=== PATIENT | male | born 1945 | race Caucasian/White ===

== ENCOUNTER 2017-11-20 16:22 | Emergency (ER) | payer BC ==
[~2017-11-20] VITALS: Ht 182.9 cm; Wt 97.0 kg
[2017-11-20 16:31] VITALS: TEMP 36.6; Ht 182.9 cm; Wt 97.0 kg
[2017-11-20] MEDS ORDERED: SODIUM CHLORIDE 0.9% 1000ML 1,000 ML IV STA (16:36)
[2017-11-20 16:48] LABS: BASO % 0.3 %; BASO ABS # 0.03 K/uL (0-0.2); EOS % 0.5 %; EOS ABS # 0.05 K/uL (0-0.5); HEMATOCRIT 39.7 % (42-52); HEMOGLOBIN 14.4 g/dL (14.0-18.0); IG# 0.03 K/uL (0.00-0.02); LYMPH % 19.5 %; MEAN CELL VOLUME 89.4 fL (80-100); MEAN CORPUSCULAR HEMOGLOBIN 32.4 pg (25-34); MEAN CORPUSCULAR HGB CONC 36.3 g/dl (32-36); MEAN PLATELET VOLUME 9.6 fL (7.4-10.4); MONO % 7.6 %; MONO ABS # 0.74 K/uL (0.11-0.59); NEUT % 71.8 %; PLATELET COUNT 213 K/uL (130-400); RED CELL DISTRIBUTION WIDTH CV 12.8 % (11.5-14.5); RED CELL DISTRIBUTION WIDTH SD 41.5 fL (36.4-46.3); WHITE BLOOD COUNT 9.75 K/uL (4.8-10.8)
--- NOTE | 2017-11-20 16:50 | EMERGENCY ROOM VISIT NOTE ---
History Report prepared by Latonia: Gerson Sim Under the Supervision of: Dr. Kassidy Burk M.D. First contact with patient: 16:23 Chief Complaint: SYNCOPE Stated Complaint: SYNCOPE Nursing Triage Summary: Patient was here in [employer] [facility] working on a house, mowing lawn and other chores. Patient came into the house and said he was dizzy and had a syncopal episode for about one minute. Patient denies pain now but c/o nausea. patient recieved 700 ml nss bolus enroute. History of Present Illness The patient is a 72 year old male who presents to the Emergency Room with complaints of resolved syncope occurring prior to arrival. Nursing staff report that the patient was working outside today for 6 hours and had an episode of syncope lasting for about one minute. The patient's family states that the patient had been mowing the lawn and painting, drinking water and lemonade throughout the day. They report that the patient sat on a ladder, his eyes rolled back, and he was unresponsive for a short time. They deny the patient hitting his head. They state that the patient now feels nauseous, hot, and sweaty. They state that the patient has a history of hypertension. They note that his PCP is at [facility]. The patient denies chest pain, shortness of breath, blood in his stool, or recent illness. He states that he vomited and currently feels nauseous and lightheaded. He states that today he ate cereal, yogurt, and milk. He notes that he is not on any medications that would affect his heart rate. He states that he has a history of bradycardia since his teen years. Source of History: patient Onset: prior to arrival Position: other (global) Quality: other (syncope) Timing: resolved Associated Symptoms: + nausea, No chest pain, No SOB, No melena, No hematochezia Note: lightheaded. denies recent illness Review of Systems See HPI for pertinent positives & negatives. A total of 10 systems reviewed and were otherwise negative. Past Medical & Surgical Medical Problems: (1) Bradycardia Family History Patient reports no known family medical history. Social History Smoking Status: Never Smoker Drug Use: none Marital Status: Housing Status: lives with family Occupation Status: retired Current/Historical Medications Scheduled Aspirin (Aspirin Ec), 81 MG PO DAILY Fish Oil ([place]-3), 1,200 MG PO QID Losartan Potassium (Cozaar), 100 MG PO DAILY Multivitamin (Multivitamin), 1 TAB PO DAILY Simvastatin (Zocor), 40 MG PO QPM Allergies Coded Allergies: No Known Allergies (Unverified , 11/20/17) Physical Exam Vital Signs Date Time Temp Pulse Resp B/P (MAP) Pulse Ox O2 Delivery O2 Flow Rate FiO2 11/20/17 21:01 141/75 11/20/17 21:00 58 20 11/20/17 20:48 64 11/20/17 20:45 67 21 11/20/17 20:31 125/71 11/20/17 20:30 55 15 11/20/17 20:15 55 17 11/20/17 20:01 151/63 11/20/17 20:00 56 16 11/20/17 19:45 55 16 11/20/17 19:31 133/71 11/20/17 19:30 56 20 11/20/17 18:38 60 18 124/63 97 Room Air 11/20/17 17:04 49 16 120/66 98 Room Air 48 120/60 51 138/58 11/20/17 16:54 50 11/20/17 16:31 36.6 52 18 124/63 99 Room Air Physical Exam Vital signs reviewed. General: Appears pale and mildly diaphoretic. The patient is holding and emesis bag. HEENT: No scleral icterus, PERRLA, neck supple. Atraumatic. Cardiovascular: Bradycardic with occasional pause. Pulmonary: Clear to auscultation bilaterally, normal work of breathing. Abdomen: Soft, nontender, nondistended, positive bowel sounds. Musculoskeletal: Atraumatic, no peripheral edema. Neurologic: Patient awake alert and oriented x 3, full strength in all 4 extremities. Cranial nerves 2 through 12 grossly intact. Skin: Warm, dry, no rash Medical Decision & Procedures Laboratory Results 11/20/17 16:30 Red Blood Count 4.44, Mean Corpuscular Volume 89.4, Mean Corpuscular Hemoglobin 32.4, Mean Corpuscular Hemoglobin Concent 36.3, Mean Platelet Volume 9.6, Neutrophils (%) (Auto) 71.8, Lymphocytes (%) (Auto) 19.5, Monocytes (%) (Auto) 7.6, Eosinophils (%) (Auto) 0.5, Basophils (%) (Auto) 0.3, Neutrophils # (Auto) 7.00, Lymphocytes # (Auto) 1.90, Monocytes # (Auto) 0.74, Eosinophils # (Auto) 0.05, Basophils # (Auto) 0.03 11/20/17 16:30 Test 11/20/17 16:30 11/20/17 17:55 11/20/17 20:28 White Blood Count 9.75 K/uL (4.8-10.8) Red Blood Count 4.44 M/uL (4.7-6.1) Hemoglobin 14.4 g/dL (14.0-18.0) Hematocrit 39.7 % (42-52) Mean Corpuscular Volume 89.4 fL (80-100) Mean Corpuscular Hemoglobin 32.4 pg (25-34) Mean Corpuscular Hemoglobin Concent 36.3 g/dl (32-36) Platelet Count 213 K/uL (130-400) Mean Platelet Volume 9.6 fL (7.4-10.4) Neutrophils (%) (Auto) 71.8 % Lymphocytes (%) (Auto) 19.5 % Monocytes (%) (Auto) 7.6 % Eosinophils (%) (Auto) 0.5 % Basophils (%) (Auto) 0.3 % Neutrophils # (Auto) 7.00 K/uL (1.4-6.5) Lymphocytes # (Auto) 1.90 K/uL (1.2-3.4) Monocytes # (Auto) 0.74 K/uL (0.11-0.59) Eosinophils # (Auto) 0.05 K/uL (0-0.5) Basophils # (Auto) 0.03 K/uL (0-0.2) RDW Standard Deviation 41.5 fL (36.4-46.3) RDW Coefficient of Variation 12.8 % (11.5-14.5) Immature Granulocyte % (Auto) 0.3 % Immature Granulocyte # (Auto) 0.03 K/uL (0.00-0.02) Anion Gap 8.0 mmol/L (3-11) Est Creatinine Clear Calc Drug Dose 42.2 ml/min Estimated GFR () 39.7 Estimated GFR (Non- 34.2 BUN/Creatinine Ratio 12.9 (10-20) Calcium Level 8.9 mg/dl (8.5-10.1) Total Bilirubin 0.8 mg/dl (0.2-1) Direct Bilirubin 0.3 mg/dl (0-0.2) Aspartate Amino Transf (AST/SGOT) 25 U/L (15-37) Alanine Aminotransferase (ALT/SGPT) 34 U/L (12-78) Alkaline Phosphatase 72 U/L (45-117) Total Creatine Kinase 206 U/L (39-308) Total Protein 7.8 gm/dl (6.4-8.2) Albumin 3.8 gm/dl (3.4-5.0) Thyroid Stimulating Hormone (TSH) 3.810 uIu/ml (0.300-4.500) Urine Color DK YELLOW Urine Appearance CLEAR (CLEAR) Urine pH 6.0 (4.5-7.5) Urine Specific [place] 1.021 (1.000-1.030) Urine Protein TRACE (NEG) Urine Glucose (UA) NEG (NEG) Urine Ketones 1+ (NEG) Urine Occult Blood NEG (NEG) Urine Nitrite NEG (NEG) Urine Bilirubin NEG (NEG) Urine Urobilinogen NEG (NEG) Urine Leukocyte Esterase SMALL (NEG) Urine WBC (Auto) 1-5 /hpf (0-5) Urine RBC (Auto) 0-4 /hpf (0-4) Urine Hyaline Casts (Auto) 1-5 /lpf (0-5) Urine Epithelial Cells (Auto) 20-30 /lpf (0-5) Urine Bacteria (Auto) NEG (NEG) Urine Pathogenic Casts /lpf (0) Troponin I 0.032 ng/ml (0-0.045) Laboratory results per my review. Medications Administered Medications (Trade) Dose Ordered Sig/Mandy Route Start Time Stop Time Status Last Admin Dose Admin Sodium Chloride 1,000 ml @ 200 mls/hr Q5H STAT IV 11/20/17 16:36 11/20/17 21:35 DC 11/20/17 17:04 200 MLS/HR Ondansetron HCl (Zofran Inj) 4 mg STK-MED ONCE .ROUTE 11/20/17 17:01 11/20/17 17:02 DC 11/20/17 17:04 4 MG ECG Per My Interpretation Indication: syncope Rate (beats per minute): 53 Rhythm: sinus bradycardia Findings: 1st degree AV block, PAC, other (QTC 414) ED Course 1632: Past medical records reviewed. The patient was evaluated in room C11A. A complete history and physical examination was performed. 1636: Ordered Sodium Chloride 1000 ml @ 200 mls/hr IV 2210: Upon reevaluation, the patient appeared to have improvement of his symptoms. I discussed findings with him. He verbalized agreement of the treatment plan. He was discharged home. Medical Decision Differential diagnosis: Etiologies such as vasovagal event, infection, hypoglycemia, electrolyte abnormalities, cardiac sources, intracerebral event, toxicologic, neurologic, as well as others were entertained. This patient was evaluated and appeared to be in no significant distress. IV access was obtained and laboratory work was drawn. Patient was placed on the nuclear monitoring technician. Orthostatic vital signs are negative. EKG reveals a first- degree AV block with a PAC. Patient is noted to be periodically bradycardic on the nuclear monitoring technician. Patient was hydrated with normal saline solution. Laboratory work reveals a creatinine of 1.9, BUN is 24. Patient states he was evaluated by cardiology recently for palpitations however he denies ever having chest pain or a syncopal episode. The central office supervisor did not feel that a stress test was indicated at that time. Patient denies any palpitations, shortness of breath prior to the episode today. The patient had been outside in the hot weather for multiple hours mowing the lawn and power washing. He came inside to tell his he was feeling nauseated. He sat down and lost consciousness for "several minutes." Patient was feeling much improved after IV hydration and IV Zofran. He was informed of the findings. He had troponin 2 that are negative. Patient denies ever having a problem with his creatinine. He does prefer to be discharged today. He was advised to follow-up with his PCP and central office supervisor regarding the episode today and to reevaluate the creatinine in approximately a week. Aspirin is noted to be on the patient's medication list, at this time I will continue this medication as the etiology of the episode is unclear. There has been no significant runs on the nuclear monitoring technician. Patient was discharged to the care of her family and will return to the ED immediately for worsening of symptoms or any medical concerns. Medication Reconcilliation Current Medication List: was personally reviewed by me Blood Pressure Screening Patient's blood pressure: Elevated blood pressure Blood pressure disposition: Elevated BP felt to be situational Impression Primary Impression: Syncope Additional Impressions: Elevated serum creatinine Bradycardia Scribe Attestation The scribe's documentation has been prepared under my direction and personally reviewed by me in its entirety. I confirm that the note above accurately reflects all work, treatment, procedures, and medical decision making performed by me. Departure Information Dispostion Home / Self-Care Forms HOME CARE DOCUMENTATION FORM, IMPORTANT VISIT INFORMATION Patient Instructions My [facility] Additional Instructions Diagnosis: Syncope, elevated creatinine Please follow-up with your primary care physician for reevaluation this week, repeat laboratory work for kidney function and consideration of cardiac stress test and/or holter monitor. Drink plenty of fluids. Return to the emergency department for worsening of symptoms, chest pain, fluttering in the chest, recurrent syncopal episode or any medical concerns. Problem Qualifiers
[2017-11-20] MEDS ORDERED: ONDANSETRON INJ 2 MG/ML 2 ML VIAL ONE (17:01)
[2017-11-20 17:18] LABS: ALBUMIN 3.8 gm/dl (3.4-5.0); CALCIUM 8.9 mg/dl (8.5-10.1); CREATININE 1.91 mg/dl (0.60-1.40); POTASSIUM 3.7 mmol/L (3.5-5.1); TOTAL PROTEIN 7.8 gm/dl (6.4-8.2)
[2017-11-20] MEDS ORDERED: LOSA1TAB38 PO (17:28)
[2017-11-20] MEDS ORDERED: ASPI81TA28 PO (17:29)
[2017-11-20] MEDS ORDERED: SIMV40TA2 PO (17:29)
[2017-11-20] MEDS ORDERED: MULT-506 PO (17:31)
[2017-11-20] MEDS ORDERED: OMEG10007 PO (17:34)
[2017-11-20 18:38] VITALS: O2SAT 97
[2017-11-20 21:00] VITALS: PULSE 58
[2017-11-20 21:01] VITALS: BP 141/75
== END 2017-11-20 21:10 | disposition home or self-care (01) ==
LOC: EDBD 16:22 → C.EDC 16:23
DX: R55 Syncope and collapse (principal); R00.1 Bradycardia, unspecified; R79.89 Other specified abnormal findings of blood chemistry; X30.XXXA Exposure to excessive natural heat, initial encounter; Y93.H9 Activity, other involving exterior property and land maintenance, building and construction; I10 Essential (primary) hypertension; Z79.82 Long term (current) use of aspirin; Z79.899 Other long term (current) drug therapy